=== PATIENT | female | born 1975 | race Caucasian/White ===

== ENCOUNTER 2025-01-19 08:10 | Outpatient (AMB) | payer OTHER, SELFPAY ==
--- OUTSIDE RECORDS SUMMARY | 2025-01-19 08:15 | XMS_ITS | Encounter Summary ---
Author Organization [facility] Address [address] [place] [phone] Phone Care Team Providers Care Book Binder Name Role Phone Kulwinder Amos MD Primary Care Provider [phone] Kulwinder Amos MD Unavailable Madan Zhao MD Unavailable [phone] Pcp, Unknown Primary Care Provider Unavailabl e Encounter Details Date Type Department Care Team (Late st Contact Info) Description 02/09/2020 Ancillary Orders [facility],Outside Imaging [address] [place] [address] System, Provider Not In, PhD [address] [address] Social History Tobacco Use Types Packs/Day Years Used Date Smoking Tobacco: Every Day Cigarettes 0.5 26 Smokeless Tobacco: Never Alcohol Use Standard Drinks/Week Comments Yes 2 (1 standard drink = 0.6 oz pur e alcohol) 2 drinks, beer, once a week Comments No Sex and Gender Information Value Date Recorded Sex Assigned at Not on file Legal Sex Female 3:40 PM EDT Gender Identity Not on file Sexual Orientation Not on file Occupation Industry Job Start Date Job End Date Not on file Not on file Not on file Not on file documented as of this encounter Plan of Treatment Not on file documented as of this encounter Results * Mammogram Outside (No Interpretation) (10/23/2016 12:00 AM EDT) Narrative SYSTEMGENERATED, DOCUMENTATION - 02/09/2020 11:12 AM EDT This study is for PACS storage only and not for interpretation. us Provider Not In System PhD IMG OUTSIDE IMAGING W /OUT INTERPRETATION Final Result documented in this encounter Visit Diagnoses Not on filedocumented in this encounter Additional Health Concerns Assessment Noted Time PHQ-2 Depression Total Score: 0 01/06/20 19 8:20 AM EDT documented as of this encounter Care Teams Book Binder Relationship Specialty Start Date End Date Kulwinder Amos MD PCP - General Internal Medicine 12/29/18 12/04/20 Pcp, Unknown PCP - General 12/05/20 Kulwinder Amos MD [address] [place] [phone] Insurance Assigned Provider 04/16/19 06/23/20 Madan Zhao MD [address] [place] [phone] Obstetrics and Gynecology 10/05/19 documented as of this encounter Additional Source Comments The information contained in this document represents components of the legal health record. It is not the complete legal health record.[facility]
--- OUTSIDE RECORDS SUMMARY | 2025-01-19 08:16 | XMS_ITS ---
Author Name [facility] Organization Unknown Care Team Organization Name Specialty Phone Email Start Date End Da te [facility] Termed, PROVIDER Primary Care 06/23/202201/13 [facility] Nam Perez Primary Care 04/22/202201/13
--- NOTE | 2025-01-19 08:25 | MHC.OFFVIS ---
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 I initially saw her in 2014 before which she has presented to [facility] with one-sided body numbness and difficulty speaking with headache and had multiple investigations not revealing any physical explanation. She was initially treated with topiramate and then for many years she did not come for follow-up apparently treating herself with CBD. In 2024, she came back stating that headaches were happening again. Topiramate was started again. She was better with it and headaches were only mild now happening twice a week. [facility] Medical History (Updated 01/19/25 @ 08:30 by Alejandra Garvin MD) Migraine Obesity Migraine equivalent syndrome Review of Systems Const Details: Constitutional:?No fever, chills, fatigue, weight loss, or night sweats. HEENT:?No vision changes, hearing loss, nasal congestion, sore throat. Neurological:?No dizziness, syncope, seizures, numbness, tingling, weakness, tremors, memory loss. Psychiatric:?No anxiety, depression, mood swings, sleep disturbance, or hallucinations. Endocrine:?No heat/cold intolerance, polydipsia, polyuria, or hair/skin changes. Hematologic/Lymphatic:?No easy bruising, bleeding, or lymphadenopathy. Integumentary (Skin):?No rash, lesions, itching, or color changes. ? Physical Exam Neuro Other: Mental Status: Alert and oriented to person, place, and time. Normal attention. Normal spontaneous speech, fluency, and comprehension. No obvious issues with mood and memory. Affect is appropriate. Cranial Nerves: CN II: Visual becerra full to confrontation, visual acuity intact. CN III, IV, : Pupils equal, round, reactive to light and accommodation. Extraocular movements are normal. CN V: Facial sensation is normal. CN VII: Facial movements symmetrical. CN VIII: Hearing intact to bedside conversation is normal. CN IX, X: Palate elevates symmetrically. CN XI: Shoulder shrug and head turn symmetrical. CN XII: Tongue midline without atrophy or fasciculations. Extrapyramidal: Full facial expressions and blinking. No rigidity. Movements are appropriate with no tremor or abnormality. Speech: Normal; no dysarthria or tremor. Assessment & Plan Assessment & Plan (1) Migraine equivalent syndrome: Code(s): G43.109 - Migraine with aura, not intractable, without status migrainosus Category: Medical (2) Migraine: Comment: Meds tried for migraine: Topiramate, sumatriptan CT brain WO at [facility] [place] Jun 2014: WNL MRI brain WO at [facility] in Jun 2014: WNL MRI C spine at [facility] in Jun 2014: straight curvature EEG in office in 2014: WNL CSF analysis at [facility] in Jun 2014: glu 60, pro 22, WBC 1-4, RBCs 64, IgG ind: WNL, OCBs absent, multiple cultures including herpez PCR neg. ESR 54. Code(s): G43.909 - Migraine, unspecified, not intractable, without status migrainosus Category: Medical Qualifiers: Migraine type: migraine (< 15 days per month) without aura Status migrainosus presence: without status migrainosus Intractability: intractable Qualified Code(s): G43.019 - Migraine without aura, intractable, without status migrainosus Plan Impression: Migraine with tendency of complicated migraine causing stroke like symptoms better with topiramate Rec: Topiramate 25mg one in am and two at night Medications: New topiramate 25 mg orally one in am and two at night; 270 tabs 1RF Coding Level of Care Code Est Pt Level 4 (34431) Diagnoses Migraine equivalent syndrome G43.109 Intractable migraine without aura and without status migrainosus G43.019 Migraine type: migraine (< 15 days per month) without aura Status migrainosus presence: without status migrainosus Intractability: intractable
== END 2025-01-19 08:38 | disposition home or self-care (01) ==
LOC: HO.HSM 08:11
PROVIDERS: PCP Internal Medicine; Visit Provider Psychiatry & Neurology Neurology
DX: G43.109 Migraine with aura, not intractable, without status migrainosus (principal); G43.019 Migraine without aura, intractable, without status migrainosus
CPT/HCPCS: 99214